=== PATIENT | female | born 1995 ===

== ENCOUNTER 2017-11-24 03:15 | Inpatient (IN) | payer SELFPAY ==
[~2017-11-24] VITALS: Ht 167.6 cm; Wt 66.8 kg
[2017-11-24] VITALS (39 sets, daily range): BP systolic 111–161; BP diastolic 59–99; PULSE 69–130; TEMP 97.4–99
[2017-11-24 04:31] LABS: BASO % 0.3 % (0.0-2.0); EOS % 0.4 % (0-4.0); GRAN # 8.6 (1.4-6.5); GRAN % 76.1 % (42.2-75.2); LYMPH # 1.9 (1.2-3.4); LYMPH % 16.7 % (20.0-51.0); MEAN CELL VOLUME 85 fl (80.0-100.0); MEAN CORPUSCULAR HGB CONC 33 g/dl (33.0-37.0); MEAN PLATELET VOLUME 12.7 fl (7.4-10.4); MONO # 0.7 (0.1-0.6); MONO % 6.1 % (1.7-9.3); PLATELET COUNT 158 K/mm3 (130-400); RED BLOOD COUNT 3.59 M/mm3 (4.10-5.30); REDCELL DISTRIBUTION WIDTH-CV 12.6 % (11.5-14.5)
[2017-11-24 04:33] LABS: HEMATOCRIT 30.6 % (37.0-47.0); HEMOGLOBIN 10.1 g/dl (12.5-16.0); MEAN CORPUSCULAR HEMOGLOBIN 28 pg (27.0-31.0)
[2017-11-24] MEDS ORDERED: TAMIFLU 75MG75 MG PO (09:00)
[2017-11-24] MEDS ORDERED: AMBIEN CR 12.12.5 MG PO (09:01)
[2017-11-24] MEDS ORDERED: PRENATAL (09:01)
[2017-11-24] MEDS ORDERED: ALOE VERA CONCE1 CAP (09:02)
[2017-11-24] MEDS ORDERED: TYLENOL 325MG325 MG PO (09:02)
[2017-11-24] MEDS ORDERED: TUMS500 MG (09:03)
[2017-11-25 07:11] LABS: HEMATOCRIT 30.9 % (37.0-47.0)
[2017-11-25 08:00] VITALS: BP 131/87; PULSE 67; TEMP 97.5
[2017-11-25] MEDS ORDERED: IBU600 MG PO (11:58)
[2017-11-25] MEDS ORDERED: PERCOCET 325 MG1 TA2 PO (11:59)
[2017-11-25 12:00] VITALS: BP 123/70; PULSE 60; TEMP 97.4
== END 2017-11-25 13:35 | disposition home or self-care (01) | DRG 775 ==
LOC: LDRO 03:15 → LDR 03:16 → OB 14:15
PROVIDERS: Obstetrics & Gynecology
PROC: 10E0XZZ Delivery of Products of Conception, External Approach (ICD-10-PCS; principal; 2017-11-24)
PROC: 0KQM0ZZ Repair Perineum Muscle, Open Approach (ICD-10-PCS; 2017-11-24)
DX: O34.211 Maternal care for low transverse scar from previous cesarean delivery (principal); N85.8 Other specified noninflammatory disorders of uterus; O43.193 Other malformation of placenta, third trimester; O70.1 Second degree perineal laceration during delivery; Z3A.39 39 weeks gestation of pregnancy; Z37.0 Single live birth
CPT/HCPCS: J2590; J2795; J7120